=== PATIENT | female | born 1945 | race African-American/Black ===

== ENCOUNTER → 2017-05-21 | Outpatient (CLI) | payer MEDICARE, BC ==
[~2017-05-21] MED LIST: ATOR10TA69 PO; CHOL100046 PO; LISI-604 PO
== END | disposition home or self-care (01) ==
LOC: MAMMO 10:15
PROVIDERS: ATTEND Internal Medicine Hematology & Oncology
DX: Z12.31 Encounter for screening mammogram for malignant neoplasm of breast (principal)
CPT/HCPCS: G0202

== ENCOUNTER → 2019-05-11 | Outpatient (CLI) | payer MEDICARE, BC | END | disposition home or self-care (01) | LOC: MAMMO 08:50 | PROVIDERS: ATTEND Internal Medicine Hematology & Oncology | DX: Z12.31 Encounter for screening mammogram for malignant neoplasm of breast (principal) | CPT/HCPCS: 77067 ==

== ENCOUNTER 2021-09-11 12:57 | Inpatient (IN) | payer MEDICARE, BC ==
[~2021-09-11] VITALS: Ht 172.7 cm; Wt 56.7 kg
[~2021-09-11 12:57] MED LIST changes: -LISI-604 PO; +LISI20TA31 PO
[2021-09-11 15:37] LABS: EOSINOPHILS % 3.2 % (0.0-5.0); HEMATOCRIT. 27.5 % (36.0-48.0); HEMOGLOBIN. 8.9 g/dL (12.0-16.0); LYMPHOCYTES % 20.4 % (20.0-50.0); MEAN CORPUSCULAR HEMOGLOBIN 29.8 pg (28.0-32.0); MEAN CORPUSCULAR VOLUME 92.6 fL (81.0-99.0); MEAN PLATELET VOLUME 8.2 fl (7.4-10.4); MONOCYTES % 10.1 % (2.0-8.0); NEUTROPHILS % 65.3 % (40.0-76.0); PLATELET 280 x1000/uL (130-400); RED BLOOD CELL COUNT 2.97 mill/uL (4.2-5.4); RED CELL DISTRIBUTION WIDTH 15.1 % (11.6-14.6)
[2021-09-11 15:45] LABS: CHLORIDE 111 mEq/L (98-107)
[2021-09-11] MEDS ORDERED: QUETIAPINE FUMARATE 50MG TABLET PO SCH (20:00)
[2021-09-11] MEDS ORDERED: POTASSIUM CHLORIDE 20MEQ TABLET SR PO NR (23:00)
[2021-09-12 04:38] VITALS: BP 159/85
[2021-09-12 05:40] VITALS: BP 173/76
[2021-09-12] MEDS ORDERED: IPRATROPIUM/ALBUTEROL 0.5-3(2.5)MG/3ML NEB HHN PRN (05:45)
[2021-09-12] MEDS ORDERED: GUAIFENESIN 200MG/10ML SUGAR FREE UDC PO PRN (05:45)
[2021-09-12] MEDS ORDERED: ONDANSETRON HCL 4MG/2ML INJ IV PRN (05:45)
[2021-09-12] MEDS ORDERED: SIMV-43 PO (05:47)
[2021-09-12] MEDS ORDERED: FURO20TA4 PO (05:47)
[2021-09-12] MEDS ORDERED: FAMO20TA8 PO (05:47)
[2021-09-12] MEDS ORDERED: ERGO1250 PO (05:47)
[2021-09-12] MEDS ORDERED: DEXT 5%/LACTATED RINGERS 1,000 ML IV SCH (06:00)
[2021-09-12 08:00] VITALS: BP 125/78
[2021-09-12] MEDS: DEXT 5%/LACTATED RINGERS 1,000 ML IV SCH ×2 (08:00→20:48)
[2021-09-12] MEDS: ENOXAPARIN 40MG/0.4ML SYR SUBCUT SCH (09:00)
[2021-09-12 09:44] LABS: BASOPHILS % 1.1 % (0.0-2.0); EOSINOPHILS % 3.6 % (0.0-5.0); HEMATOCRIT. 29.1 % (36.0-48.0); HEMOGLOBIN. 9.5 g/dL (12.0-16.0); LYMPHOCYTES % 15.8 % (20.0-50.0); MEAN CORPUSCULAR HEMOGLOBIN 30.2 pg (28.0-32.0); MEAN CORPUSCULAR VOLUME 91.9 fL (81.0-99.0); MEAN PLATELET VOLUME 8.2 fl (7.4-10.4); MONOCYTES % 8.6 % (2.0-8.0); NEUTROPHILS % 70.9 % (40.0-76.0); PLATELET 306 x1000/uL (130-400); RED BLOOD CELL COUNT 3.16 mill/uL (4.2-5.4); RED CELL DISTRIBUTION WIDTH 15.6 % (11.6-14.6)
[2021-09-12 09:57] LABS: CHLORIDE 110 mEq/L (98-107)
[2021-09-12 10:06] LABS: TOTAL IRON BINDING CAPACITY 409 ug/dL (250-450)
[2021-09-12] MEDS: LISINOPRIL 20MG TABLET PO SCH (11:15)
[2021-09-12 12:00] VITALS: BP 130/75
[2021-09-12 14:00] VITALS: BP 135/72
[2021-09-12 16:00] VITALS: BP 136/79
[2021-09-12] MEDS: FAMOTIDINE 20MG TABLET PO SCH (20:19)
[2021-09-12] MEDS: ATORVASTATIN CALCIUM 10MG TABLET PO SCH (20:19)
[2021-09-12] MEDS: LORAZEPAM 2MG/ML CPJ IM PRN (21:51)
[2021-09-13] MEDS: LORAZEPAM 2MG/ML CPJ IM PRN ×2 (05:41→21:34)
[2021-09-13] MEDS: DEXT 5%/LACTATED RINGERS 1,000 ML IV SCH ×2 (10:40→23:14)
[2021-09-13] MEDS: RISPERIDONE 0.25MG TABLET PO SCH ×2 (11:38→17:12)
[2021-09-13] MEDS: MEMANTINE HCL 5MG TABLET PO SCH ×2 (11:38→21:00)
[2021-09-13] MEDS: LISINOPRIL 20MG TABLET PO SCH (11:39)
[2021-09-13] MEDS: ENOXAPARIN 40MG/0.4ML SYR SUBCUT SCH (11:40)
[2021-09-13 12:07] VITALS: BP 178/76
[2021-09-13 16:08] VITALS: BP 172/76
[2021-09-13 20:00] VITALS: BP 156/94
[2021-09-13] MEDS: ATORVASTATIN CALCIUM 10MG TABLET PO SCH (21:00)
[2021-09-13] MEDS: FAMOTIDINE 20MG TABLET PO SCH (21:00)
[2021-09-14] VITALS: BP 130/88
[2021-09-14 04:00] VITALS: BP 164/79
[2021-09-14] MEDS: MEMANTINE HCL 5MG TABLET PO SCH ×2 (09:05→21:00)
[2021-09-14] MEDS: RISPERIDONE 0.25MG TABLET PO SCH ×2 (09:05→17:00)
[2021-09-14] MEDS: LISINOPRIL 20MG TABLET PO SCH (09:05)
[2021-09-14] MEDS: ENOXAPARIN 40MG/0.4ML SYR SUBCUT SCH (09:07)
[2021-09-14] MEDS ORDERED: MEMA5TAB7 PO (11:44)
[2021-09-14 13:09] LABS: VITAMIN B12 SERUM 316 pg/mL (211-911)
[2021-09-14] MEDS: LORAZEPAM 2MG/ML CPJ IM PRN ×2 (14:06→22:29)
[2021-09-14] MEDS: DEXT 5%/LACTATED RINGERS 1,000 ML IV SCH (16:05)
[2021-09-14 20:00] VITALS: BP 174/92
[2021-09-14] MEDS: HYDRALAZINE 20MG/ML VIAL IV PRN (20:47)
[2021-09-14] MEDS: ATORVASTATIN CALCIUM 10MG TABLET PO SCH (21:00)
[2021-09-14] MEDS: FAMOTIDINE 20MG TABLET PO SCH (21:00)
[2021-09-14] MEDS ORDERED: METOPROLOL TARTRATE 5MG/5ML VIAL IV PRN (22:15)
[2021-09-15] VITALS: BP 136/76
[2021-09-15] MEDS: ACETAMINOPHEN 650MG SUPP PR PRN ×2 (01:07→21:09)
[2021-09-15] MEDS: DEXT 5%/LACTATED RINGERS 1,000 ML IV SCH ×2 (02:40→16:19)
[2021-09-15 04:00] VITALS: BP 145/95
[2021-09-15 08:00] VITALS: BP_SYST 104; BP_SYST 106; BP_DIAS 71
[2021-09-15] MEDS: AMLODIPINE 5MG TABLET PO SCH (08:00)
[2021-09-15] MEDS: LISINOPRIL 20MG TABLET PO SCH (08:00)
[2021-09-15] MEDS: RISPERIDONE 0.25MG TABLET PO SCH ×3 (09:00→16:41)
[2021-09-15] MEDS: MEMANTINE HCL 5MG TABLET PO SCH ×2 (09:00→21:00)
[2021-09-15] MEDS: ENOXAPARIN 40MG/0.4ML SYR SUBCUT SCH (09:00)
[2021-09-15 10:05] LABS: BASOPHILS % 0.3 % (0.0-2.0); EOSINOPHILS % 0.7 % (0.0-5.0); HEMATOCRIT. 26.8 % (36.0-48.0); LYMPHOCYTES % 7.1 % (20.0-50.0); MEAN CORPUSCULAR HEMOGLOBIN 30.1 pg (28.0-32.0); MEAN CORPUSCULAR VOLUME 90.1 fL (81.0-99.0); MEAN PLATELET VOLUME 8.2 fl (7.4-10.4); MONOCYTES % 9.3 % (2.0-8.0); NEUTROPHILS % 82.6 % (40.0-76.0); PLATELET 251 x1000/uL (130-400); RED BLOOD CELL COUNT 2.98 mill/uL (4.2-5.4); RED CELL DISTRIBUTION WIDTH 15.3 % (11.6-14.6)
[2021-09-15 10:52] LABS: CHLORIDE 111 mEq/L (98-107)
[2021-09-15 12:00] VITALS: BP 155/85
[2021-09-15 16:00] VITALS: BP 123/75
[2021-09-15] MEDS ORDERED: KCL 20MEQ/100ML PREMIX 100 ML IV NR (17:00)
[2021-09-15 20:00] VITALS: BP 173/88
[2021-09-15] MEDS: ATORVASTATIN CALCIUM 10MG TABLET PO SCH (21:00)
[2021-09-15] MEDS: FAMOTIDINE 20MG TABLET PO SCH (21:00)
[2021-09-15] MEDS: HYDRALAZINE 20MG/ML VIAL IV PRN (21:10)
[2021-09-16] VITALS: BP 163/80
[2021-09-16 04:00] VITALS: BP 156/82
[2021-09-16] MEDS: DEXT 5%/LACTATED RINGERS 1,000 ML IV SCH ×2 (05:20→18:14)
[2021-09-16 08:00] VITALS: BP 158/77
[2021-09-16] MEDS: LISINOPRIL 20MG TABLET PO SCH (09:06)
[2021-09-16] MEDS: RISPERIDONE 0.25MG TABLET PO SCH ×2 (09:06→16:33)
[2021-09-16] MEDS: MEMANTINE HCL 5MG TABLET PO SCH ×2 (09:07→21:22)
[2021-09-16] MEDS: AMLODIPINE 5MG TABLET PO SCH (09:07)
[2021-09-16] MEDS: ENOXAPARIN 40MG/0.4ML SYR SUBCUT SCH (09:14)
[2021-09-16 11:39] LABS: BASOPHILS % 0.7 % (0.0-2.0); HEMATOCRIT. 27.1 % (36.0-48.0); HEMOGLOBIN. 9.1 g/dL (12.0-16.0); LYMPHOCYTES % 15.2 % (20.0-50.0); MEAN CORPUSCULAR HEMOGLOBIN 30.1 pg (28.0-32.0); MEAN CORPUSCULAR VOLUME 89.7 fL (81.0-99.0); MEAN PLATELET VOLUME 8.5 fl (7.4-10.4); MONOCYTES % 10.9 % (2.0-8.0); NEUTROPHILS % 71.2 % (40.0-76.0); PLATELET 255 x1000/uL (130-400); RED BLOOD CELL COUNT 3.02 mill/uL (4.2-5.4); RED CELL DISTRIBUTION WIDTH 15.6 % (11.6-14.6)
[2021-09-16 12:00] VITALS: BP 113/81
[2021-09-16 12:13] LABS: CHLORIDE 111 mEq/L (98-107)
[2021-09-16] MEDS ORDERED: KCL 20MEQ/100ML PREMIX 100 ML IV SCH (15:30)
[2021-09-16 16:00] VITALS: BP 134/77
[2021-09-16 20:00] VITALS: BP 143/76
[2021-09-16] MEDS ORDERED: KCL 20MEQ/100ML PREMIX 100 ML IV NR (20:00)
[2021-09-16] MEDS ORDERED: CEFTRIAXONE 1 G PREMIX 50 ML IV SCH (20:15)
[2021-09-16] MEDS: ACETAMINOPHEN 325MG TABLET PO PRN (21:22)
[2021-09-16] MEDS: FAMOTIDINE 20MG TABLET PO SCH (21:22)
[2021-09-16] MEDS: ATORVASTATIN CALCIUM 10MG TABLET PO SCH (21:22)
[2021-09-16] MEDS: LORAZEPAM 2MG/ML CPJ IM PRN (23:14)
[2021-09-17] VITALS: BP 146/75
[2021-09-17] MEDS: CEFTRIAXONE 1,000 MG in DEXTROSE 5% WATER 50 ML IV SCH ×2 (00:04→22:30)
[2021-09-17 04:00] VITALS: BP 159/79
[2021-09-17 06:59] LABS: HEMATOCRIT. 25.4 % (36.0-48.0); HEMOGLOBIN. 8.4 g/dL (12.0-16.0); MEAN CORPUSCULAR HEMOGLOBIN 29.7 pg (28.0-32.0); MEAN CORPUSCULAR VOLUME 90.1 fL (81.0-99.0); PLATELET 244 x1000/uL (130-400); RED BLOOD CELL COUNT 2.82 mill/uL (4.2-5.4); RED CELL DISTRIBUTION WIDTH 15.8 % (11.6-14.6)
[2021-09-17 07:15] LABS: CHLORIDE 114 mEq/L (98-107)
[2021-09-17 08:00] VITALS: BP 164/100
[2021-09-17] MEDS: LISINOPRIL 20MG TABLET PO SCH (08:46)
[2021-09-17] MEDS: RISPERIDONE 0.25MG TABLET PO SCH ×2 (08:46→18:37)
[2021-09-17] MEDS: ENOXAPARIN 40MG/0.4ML SYR SUBCUT SCH (08:47)
[2021-09-17] MEDS: MEMANTINE HCL 5MG TABLET PO SCH ×2 (08:47→20:17)
[2021-09-17] MEDS: AMLODIPINE 5MG TABLET PO SCH (08:47)
[2021-09-17] MEDS: LORAZEPAM 2MG/ML CPJ IM PRN ×2 (08:48→19:58)
[2021-09-17 13:58] VITALS: BP 174/95
[2021-09-17] MEDS: HYDRALAZINE 20MG/ML VIAL IV PRN (13:59)
[2021-09-17 16:00] VITALS: BP 128/68
[2021-09-17 19:24] LABS: PLATELET ESTIMATE NORMAL
[2021-09-17 20:00] VITALS: BP 136/74
[2021-09-17] MEDS: ATORVASTATIN CALCIUM 10MG TABLET PO SCH (20:17)
[2021-09-17] MEDS: FAMOTIDINE 20MG TABLET PO SCH (20:18)
[2021-09-18] VITALS: BP 150/84
[2021-09-18 04:00] VITALS: BP 144/55
[2021-09-18 08:00] VITALS: BP 149/76
[2021-09-18] MEDS: LISINOPRIL 20MG TABLET PO SCH (09:35)
[2021-09-18] MEDS: MEMANTINE HCL 5MG TABLET PO SCH ×2 (09:35→21:19)
[2021-09-18] MEDS: AMLODIPINE 5MG TABLET PO SCH (09:35)
[2021-09-18] MEDS: RISPERIDONE 0.5MG TABLET PO SCH ×2 (09:46→16:51)
[2021-09-18] MEDS: ENOXAPARIN 40MG/0.4ML SYR SUBCUT SCH (09:46)
[2021-09-18 12:00] VITALS: BP 121/65
[2021-09-18] MEDS: DEXT 5%/LACTATED RINGERS 1,000 ML IV SCH ×2 (13:44→13:45)
[2021-09-18 16:00] VITALS: BP 138/76
[2021-09-18] MEDS: ACETAMINOPHEN 325MG TABLET PO PRN (16:52)
[2021-09-18 20:00] VITALS: BP 148/78
[2021-09-18] MEDS: CEFTRIAXONE 1,000 MG in DEXTROSE 5% WATER 50 ML IV SCH (21:19)
[2021-09-18] MEDS: ATORVASTATIN CALCIUM 10MG TABLET PO SCH (21:19)
[2021-09-18] MEDS: FAMOTIDINE 20MG TABLET PO SCH (21:19)
[2021-09-19] VITALS: BP 155/68
[2021-09-19] MEDS: DEXT 5%/LACTATED RINGERS 1,000 ML IV SCH ×2 (03:24→22:00)
[2021-09-19 03:45] VITALS: BP 138/56
[2021-09-19 08:00] VITALS: BP 129/88
[2021-09-19] MEDS: ACETAMINOPHEN 325MG TABLET PO PRN (09:43)
[2021-09-19] MEDS: RISPERIDONE 0.5MG TABLET PO SCH ×2 (09:43→17:02)
[2021-09-19] MEDS: MEMANTINE HCL 5MG TABLET PO SCH ×2 (09:44→21:53)
[2021-09-19] MEDS: LISINOPRIL 20MG TABLET PO SCH (09:44)
[2021-09-19] MEDS: AMLODIPINE 5MG TABLET PO SCH (09:44)
[2021-09-19] MEDS: ENOXAPARIN 40MG/0.4ML SYR SUBCUT SCH (09:50)
[2021-09-19 12:00] VITALS: BP 155/93
[2021-09-19 16:00] VITALS: BP 145/75
[2021-09-19 20:00] VITALS: BP 159/90
[2021-09-19] MEDS: MIRTAZAPINE 15MG TABLET PO SCH ×2 (21:00→22:47)
[2021-09-19] MEDS: CEFTRIAXONE 1,000 MG in DEXTROSE 5% WATER 50 ML IV SCH (21:53)
[2021-09-19] MEDS: ATORVASTATIN CALCIUM 10MG TABLET PO SCH (21:53)
[2021-09-19] MEDS: FAMOTIDINE 20MG TABLET PO SCH (21:53)
[2021-09-19] MEDS ORDERED: HALOPERIDOL LACTATE 5MG/ML VIAL IM SCH (23:00)
[2021-09-20] VITALS: BP 176/133
[2021-09-20] MEDS: HYDRALAZINE 20MG/ML VIAL IV PRN ×2 (01:35→09:48)
[2021-09-20 04:00] VITALS: BP 165/89
[2021-09-20 08:00] VITALS: BP 168/86
[2021-09-20 08:12] LABS: CHLORIDE 110 mEq/L (98-107)
[2021-09-20] MEDS: ENOXAPARIN 40MG/0.4ML SYR SUBCUT SCH (09:39)
[2021-09-20] MEDS: AMLODIPINE 5MG TABLET PO SCH (09:40)
[2021-09-20] MEDS: RISPERIDONE 0.5MG TABLET PO SCH ×2 (09:40→16:53)
[2021-09-20] MEDS: MEMANTINE HCL 5MG TABLET PO SCH ×2 (09:40→21:32)
[2021-09-20] MEDS: LISINOPRIL 20MG TABLET PO SCH (09:41)
[2021-09-20] MEDS ORDERED: MEMA10TA55 MT (10:18)
[2021-09-20] MEDS ORDERED: ARIP2TAB3 MT (10:18)
[2021-09-20 11:30] LABS: BASOPHILS % 0.8 % (0.0-2.0); EOSINOPHILS % 0.8 % (0.0-5.0); HEMATOCRIT. 28.1 % (36.0-48.0); HEMOGLOBIN. 9.4 g/dL (12.0-16.0); LYMPHOCYTES % 13.2 % (20.0-50.0); MEAN CORPUSCULAR VOLUME 89.8 fL (81.0-99.0); MEAN PLATELET VOLUME 7.9 fl (7.4-10.4); MONOCYTES % 11.9 % (2.0-8.0); NEUTROPHILS % 73.3 % (40.0-76.0); PLATELET 284 x1000/uL (130-400); RED BLOOD CELL COUNT 3.13 mill/uL (4.2-5.4); RED CELL DISTRIBUTION WIDTH 15.4 % (11.6-14.6)
[2021-09-20 12:00] VITALS: BP 136/66
[2021-09-20] MEDS ORDERED: ACETAMINOPHEN 325MG TABLET PO NR (14:00)
[2021-09-20 16:00] VITALS: BP 126/67
[2021-09-20] MEDS: DEXT 5%/LACTATED RINGERS 1,000 ML IV SCH (16:52)
[2021-09-20] MEDS ORDERED: HALOPERIDOL LACTATE 5MG/ML VIAL IM PRN (19:00)
[2021-09-20 20:27] VITALS: BP 117/51
[2021-09-20] MEDS: FAMOTIDINE 20MG TABLET PO SCH (21:32)
[2021-09-20] MEDS: MIRTAZAPINE 15MG TABLET PO SCH (21:32)
[2021-09-20] MEDS: ATORVASTATIN CALCIUM 10MG TABLET PO SCH (21:32)
[2021-09-20] MEDS: CEFTRIAXONE 1,000 MG in DEXTROSE 5% WATER 50 ML IV SCH (21:33)
[2021-09-21 01:00] VITALS: BP 134/74
[2021-09-21 04:00] VITALS: BP 142/73
[2021-09-21] MEDS: DEXT 5%/LACTATED RINGERS 1,000 ML IV SCH ×3 (05:56→20:44)
[2021-09-21 08:00] VITALS: BP 145/79
[2021-09-21] MEDS: RISPERIDONE 0.5MG TABLET PO SCH ×2 (08:08→17:21)
[2021-09-21] MEDS: MEMANTINE HCL 5MG TABLET PO SCH ×2 (08:09→20:42)
[2021-09-21] MEDS: LISINOPRIL 20MG TABLET PO SCH (08:09)
[2021-09-21] MEDS: AMLODIPINE 5MG TABLET PO SCH (08:09)
[2021-09-21] MEDS: ENOXAPARIN 40MG/0.4ML SYR SUBCUT SCH (08:10)
[2021-09-21 12:00] VITALS: BP 140/81
[2021-09-21 16:00] VITALS: BP 135/65
[2021-09-21 20:00] VITALS: BP 138/81
[2021-09-21] MEDS: DOCUSATE SODIUM 100MG CAPSULE PO PRN (20:40)
[2021-09-21] MEDS: FAMOTIDINE 20MG TABLET PO SCH (20:40)
[2021-09-21] MEDS: MIRTAZAPINE 15MG TABLET PO SCH (20:40)
[2021-09-21] MEDS: ATORVASTATIN CALCIUM 10MG TABLET PO SCH (20:43)
[2021-09-22] VITALS: BP 121/57
[2021-09-22 04:00] VITALS: BP 133/71
[2021-09-22 07:51] VITALS: BP 152/99
[2021-09-22] MEDS: MEMANTINE HCL 5MG TABLET PO SCH ×2 (08:07→20:28)
[2021-09-22] MEDS: AMLODIPINE 5MG TABLET PO SCH (08:07)
[2021-09-22] MEDS: ENOXAPARIN 40MG/0.4ML SYR SUBCUT SCH (08:07)
[2021-09-22] MEDS: RISPERIDONE 0.5MG TABLET PO SCH ×2 (08:07→16:17)
[2021-09-22] MEDS: LISINOPRIL 20MG TABLET PO SCH (08:07)
[2021-09-22 11:37] VITALS: BP 148/79
[2021-09-22 15:47] VITALS: BP 159/65
[2021-09-22 20:00] VITALS: BP 150/66
[2021-09-22] MEDS: FAMOTIDINE 20MG TABLET PO SCH (20:28)
[2021-09-22] MEDS: MIRTAZAPINE 15MG TABLET PO SCH (20:28)
[2021-09-22] MEDS: ATORVASTATIN CALCIUM 10MG TABLET PO SCH (20:28)
[2021-09-22] MEDS: DEXT 5%/LACTATED RINGERS 1,000 ML IV SCH (20:29)
[2021-09-23 00:10] VITALS: BP 133/68
[2021-09-23 04:00] VITALS: BP 137/84
[2021-09-23 08:00] VITALS: BP 128/79
[2021-09-23 08:09] LABS: BASOPHILS % 0.5 % (0.0-2.0); EOSINOPHILS % 2.5 % (0.0-5.0); HEMATOCRIT. 28.4 % (36.0-48.0); HEMOGLOBIN. 9.4 g/dL (12.0-16.0); LYMPHOCYTES % 19.7 % (20.0-50.0); MEAN CORPUSCULAR HEMOGLOBIN 29.7 pg (28.0-32.0); MEAN CORPUSCULAR VOLUME 89.9 fL (81.0-99.0); MEAN PLATELET VOLUME 7.8 fl (7.4-10.4); MONOCYTES % 11.3 % (2.0-8.0); PLATELET 411 x1000/uL (130-400); RED BLOOD CELL COUNT 3.16 mill/uL (4.2-5.4); RED CELL DISTRIBUTION WIDTH 16.1 % (11.6-14.6)
[2021-09-23 08:16] LABS: CHLORIDE 107 mEq/L (98-107)
[2021-09-23] MEDS: MEMANTINE HCL 5MG TABLET PO SCH ×2 (09:40→20:16)
[2021-09-23] MEDS: LISINOPRIL 20MG TABLET PO SCH (09:41)
[2021-09-23] MEDS: AMLODIPINE 5MG TABLET PO SCH (09:41)
[2021-09-23] MEDS: RISPERIDONE 0.5MG TABLET PO SCH ×2 (09:41→17:17)
[2021-09-23] MEDS: ENOXAPARIN 40MG/0.4ML SYR SUBCUT SCH (09:42)
[2021-09-23] MEDS: DEXT 5%/LACTATED RINGERS 1,000 ML IV SCH (10:40)
[2021-09-23 12:00] VITALS: BP 116/72
[2021-09-23 16:00] VITALS: BP 152/79
[2021-09-23 20:00] VITALS: BP 142/75
[2021-09-23] MEDS: MIRTAZAPINE 15MG TABLET PO SCH (20:17)
[2021-09-23] MEDS: FAMOTIDINE 20MG TABLET PO SCH (20:17)
[2021-09-23] MEDS: ATORVASTATIN CALCIUM 10MG TABLET PO SCH (20:17)
[2021-09-23] MEDS ORDERED: HALOPERIDOL LACTATE 5MG/ML VIAL IM NR (22:15)
[2021-09-24 00:05] VITALS: BP 121/71
[2021-09-24 04:00] VITALS: BP 148/79
[2021-09-24 08:00] VITALS: BP 129/54
[2021-09-24] MEDS: MEMANTINE HCL 5MG TABLET PO SCH ×2 (08:50→21:36)
[2021-09-24] MEDS: LISINOPRIL 20MG TABLET PO SCH ×2 (08:53→08:58)
[2021-09-24] MEDS: AMLODIPINE 5MG TABLET PO SCH ×2 (08:53→08:58)
[2021-09-24] MEDS: RISPERIDONE 0.5MG TABLET PO SCH ×2 (08:53→17:03)
[2021-09-24] MEDS: ENOXAPARIN 40MG/0.4ML SYR SUBCUT SCH (08:54)
[2021-09-24 11:54] VITALS: BP 123/49
[2021-09-24] MEDS: DEXT 5%/LACTATED RINGERS 1,000 ML IV SCH ×2 (13:20)
[2021-09-24 16:00] VITALS: BP 157/73
[2021-09-24 20:00] VITALS: BP 109/70
[2021-09-24] MEDS: MIRTAZAPINE 15MG TABLET PO SCH (21:35)
[2021-09-24] MEDS: FAMOTIDINE 20MG TABLET PO SCH (21:36)
[2021-09-24] MEDS: ATORVASTATIN CALCIUM 10MG TABLET PO SCH (21:36)
[2021-09-25] VITALS (7 sets, daily range): BP systolic 122–158; BP diastolic 51–75
[2021-09-25] MEDS: DEXT 5%/LACTATED RINGERS 1,000 ML IV SCH ×2 (02:40→15:57)
[2021-09-25] MEDS: AMLODIPINE 5MG TABLET PO SCH (08:30)
[2021-09-25] MEDS: LISINOPRIL 20MG TABLET PO SCH (08:30)
[2021-09-25] MEDS: RISPERIDONE 0.5MG TABLET PO SCH ×2 (08:30→16:00)
[2021-09-25] MEDS: MEMANTINE HCL 5MG TABLET PO SCH ×2 (08:30→21:30)
[2021-09-25] MEDS: ENOXAPARIN 40MG/0.4ML SYR SUBCUT SCH (08:30)
[2021-09-25] MEDS: ATORVASTATIN CALCIUM 10MG TABLET PO SCH (21:30)
[2021-09-25] MEDS: MIRTAZAPINE 15MG TABLET PO SCH (21:30)
[2021-09-25] MEDS: FAMOTIDINE 20MG TABLET PO SCH (21:30)
[2021-09-26] MEDS: DOCUSATE SODIUM 100MG CAPSULE PO PRN (01:01)
[2021-09-26 04:00] VITALS: BP 129/66
[2021-09-26] MEDS: DEXT 5%/LACTATED RINGERS 1,000 ML IV SCH ×2 (04:41→18:40)
[2021-09-26 08:00] VITALS: BP 145/68
[2021-09-26] MEDS: MEMANTINE HCL 5MG TABLET PO SCH ×2 (08:12→20:18)
[2021-09-26] MEDS: RISPERIDONE 0.5MG TABLET PO SCH ×2 (08:12→17:46)
[2021-09-26] MEDS: ENOXAPARIN 40MG/0.4ML SYR SUBCUT SCH (08:12)
[2021-09-26] MEDS: LISINOPRIL 20MG TABLET PO SCH (08:12)
[2021-09-26] MEDS: AMLODIPINE 5MG TABLET PO SCH (08:13)
[2021-09-26 12:00] VITALS: BP 141/67
[2021-09-26 15:38] VITALS: BP 129/66
[2021-09-26 16:00] VITALS: BP 128/66
[2021-09-26 20:00] VITALS: BP 109/57
[2021-09-26] MEDS: ATORVASTATIN CALCIUM 10MG TABLET PO SCH (20:18)
[2021-09-26] MEDS: FAMOTIDINE 20MG TABLET PO SCH (20:19)
[2021-09-26] MEDS: MIRTAZAPINE 15MG TABLET PO SCH (20:19)
[2021-09-27] VITALS: BP 116/62
[2021-09-27 04:00] VITALS: BP 127/68
[2021-09-27 08:00] VITALS: BP 127/45
[2021-09-27] MEDS: MEMANTINE HCL 5MG TABLET PO SCH (08:37)
[2021-09-27] MEDS: ENOXAPARIN 40MG/0.4ML SYR SUBCUT SCH (08:37)
[2021-09-27] MEDS: LISINOPRIL 20MG TABLET PO SCH (08:37)
[2021-09-27] MEDS: RISPERIDONE 0.5MG TABLET PO SCH (08:38)
[2021-09-27] MEDS: AMLODIPINE 5MG TABLET PO SCH (08:38)
== END 2021-09-27 11:25 | DRG 70 ==
LOC: ER 12:57 → 6WST 22:08 → ENRESERV 09-12 03:04 → 7EST 09-20 19:06
PROVIDERS: ADMIT Family Medicine Adult Medicine; ATTEND Internal Medicine
DX: G93.40 Encephalopathy, unspecified (principal); U07.1 COVID-19; N39.0 Urinary tract infection, site not specified; F05 Delirium due to known physiological condition; R44.3 Hallucinations, unspecified; F02.81 Dementia in other diseases classified elsewhere, unspecified severity, with behavioral disturbance; R62.7 Adult failure to thrive; Z85.3 Personal history of malignant neoplasm of breast; E87.6 Hypokalemia; D64.9 Anemia, unspecified; B96.20 Unspecified Escherichia coli [E. coli] as the cause of diseases classified elsewhere; R00.1 Bradycardia, unspecified; G30.9 Alzheimer's disease, unspecified
CPT/HCPCS: 36415; 71045; 80048; 80053; 82607; 83540; 83550; 83735; 83880; 84145; 84443; 84484; 85025; 87077; 87186; 87426; 99285; C1893; J0360; J0696; J1630; J1650; J2060; J3480; J7060; J7121; U0003; U0005